=== PATIENT | male | born 1995 | race Two or more races ===

== ENCOUNTER 2019-07-05 16:17 | Emergency (ER) | payer OTHER ==
[~2019-07-05] VITALS: Ht 177.8 cm; Wt 129.3 kg
[2019-07-05 16:22] VITALS: BP 138/84
== END 2019-07-05 17:29 | disposition home or self-care (01) ==
LOC: ER 16:26
DX: S61.432A Puncture wound without foreign body of left hand, initial encounter (principal); F10.10 Alcohol abuse, uncomplicated; Y90.9 Presence of alcohol in blood, level not specified; W46.0XXA Contact with hypodermic needle, initial encounter; Y93.89 Activity, other specified; Y92.89 Other specified places as the place of occurrence of the external cause; Y99.8 Other external cause status
CPT/HCPCS: 86706; 86803; 87806